=== PATIENT | female | born 1980 | race African-American/Black ===

== ENCOUNTER 2018-03-12 09:33 | Emergency (ER) | payer MEDICAID ==
[~2018-03-12] VITALS: Ht 162.6 cm; Wt 67.4 kg
[~2018-03-12 09:33] MED LIST: IRON; MOTRIN
[2018-03-12] MEDS ORDERED: DIPHENHYDRAMINE 25MG CAPSULE PO ONE (11:00)
[2018-03-12 11:42] VITALS: BP 141/94
== END 2018-03-12 11:43 | disposition home or self-care (01) ==
LOC: ER 10:04
DX: S60.561A Insect bite (nonvenomous) of right hand, initial encounter (principal); L03.113 Cellulitis of right upper limb; I10 Essential (primary) hypertension; W57.XXXA Bitten or stung by nonvenomous insect and other nonvenomous arthropods, initial encounter; Y93.89 Activity, other specified; Y92.89 Other specified places as the place of occurrence of the external cause; Y99.8 Other external cause status; Z98.890 Other specified postprocedural states
CPT/HCPCS: 99283; Q0163